=== PATIENT | female | born 1950 | race Caucasian/White ===

== ENCOUNTER → 2017-12-03 | Day surgery (SDC) | payer OTHER, MEDICARE ==
[~2017-12-03] VITALS: Ht 149.9 cm; Wt 72.6 kg
[~2017-12-03] MED LIST: AUGMENTIN 875-1 EACH PO; BIOTIN2500 MCG PO; COZAAR100 M1 PO; HYDROCHLOROTHIA25 M1 PO; METFORMIN HCL500 M3 PO; PERCOCET 5-3251 EACH PO; PRAVACHOL20 M2 PO
--- NOTE | 2017-12-03 15:09 | Operative Report ---
Operative/Inv Procedure Report Surgery Date: 12/03/17 Name of Procedure: Laparoscopic drainage of peritoneal abscess with appendectomy Pre-Operative Diagnosis: Appendiceal abscess Post-Operative Diagnosis: Same Estimated Blood Loss: scant Surgeon/Quality Assurance Representative: Jai BERKOWITZ,Todd Brody/Nalini Zuñiga APRN Anesthesia: general endotracheal tube Specimens: Appendix Operative Indication: 67-year-old woman status post percutaneous drainage of appendiceal abscess while visiting in [place]. She now presents for interval appendectomy Operative/Procedure Note Note: After consent patient is brought to the operating room and laid supine. General anesthesia was obtained his abdomen was prepped and draped. Skin above the umbilicus was after local anesthesia a curvilinear incision made sharply. We dissected through subcutaneous tissues tissues bluntly and identified the fascia. It was grasped with Denver's and a fasciotomy created sharply. The peritoneum was entered sharply and a blunt Morales port was placed. Pneumoperitoneum was achieved. 2, 5 mm ports were placed in the suprapubic region and left lower quadrant, after local anesthesia was instilled and under direct vision the camera. Patient placed in Trendelenburg and rotated towards the left. The abdomen was explored. Appendix is identified in the right lower quadrant. There are numerous adhesions around it which were taken down with cautery dissection. The cecum was mobilized to allow better dissection. 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 At the tip it was stuck in the pelvic sidewall. This area was painstakingly dissected free with cautery and blunt dissection. We entered the abscess cavity which was drained. The cavity measured 2 cm. After freeing up the rest of the appendix it was delivered to the operative field. A window in the mesentery was developed with a [place]. The mesentery and base were then sequentially divided with Endo GIANNA higuera load. The appendix was placed into an Endo Catch bag and cinched up. The right lower quadrant and pelvis were then irrigated with normal saline. Hemostasis was adequate. Ports then removed and appendix delivered and passed off the field. The fascia was closed 0 Vicryl suture. Skin incisions closed with 4-0 Vicryl. Steri-Strips and sterile dressing applied. Sponge and needle counts are correct CC: Palomo BERKOWITZ,Charles Guzmán
== END ==
LOC: STS 01:43
DX: K35.80 Unspecified acute appendicitis (principal); K38.2 Diverticulum of appendix; J44.9 Chronic obstructive pulmonary disease, unspecified; E11.9 Type 2 diabetes mellitus without complications; Z79.84 Long term (current) use of oral hypoglycemic drugs; F17.200 Nicotine dependence, unspecified, uncomplicated; I10 Essential (primary) hypertension
CPT/HCPCS: 1263; 36415; J2250; J3490